=== PATIENT | female | born 1995 | race Caucasian/White ===

== ENCOUNTER 2021-04-04 07:25 | Inpatient (IN) | payer OTHER ==
[2021-04-04] MEDS ORDERED: BUTORPHANOL TARTRATE 1 MG/ML VIAL IVPB PRN ×2 (08:07)
[2021-04-04] MEDS ORDERED: PROMETHAZINE HCL 25 MG/1 ML VIAL IVPB ONE (08:07)
[2021-04-04 08:40] VITALS: BMI 33.3
[2021-04-04] MEDS: ELECTROLYTE-148 SOLN 1,000 ML IV SCH (09:15)
[2021-04-04] MEDS ORDERED: DINOPROSTONE 10 MG VAGINAL SUPPOSITORY VG ONE (09:45)
[2021-04-04 09:55] LABS: BASO % 0.4 % (0-2.0); EOS % 0.9 % (0-4.5); HEMATOCRIT 32.9 % (32.4-45.2); HEMOGLOBIN 11.4 GM/dL (10.7-15.3); LYMPH % 25.7 % (8-40); MCH 29.8 pg (25.7-33.7); MCHC 34.6 g/dl (32.0-36.0); MEAN CELL VOLUME 86.1 fl (80-96); MEAN PLT VOLUME 9.3 fl (7.5-11.1); MONO % 5.3 % (3.8-10.2); NEUT % 67.7 % (42.8-82.8); PLATELET COUNT 176 10^3/uL (134-434); RBC 3.83 M/mm3 (3.60-5.2); RDW 13.9 % (11.6-15.6); WHITE BLOOD COUNT 6.3 K/mm3 (4.0-10.0)
[2021-04-04 10:01] LABS: INR 0.83 (0.83-1.09); PROTHROMBIN TIME (PATIENT) 10.2 SEC (9.7-13.0)
[2021-04-04 10:04] LABS: ACTIVATED PTT 24.7 SECONDS (25.2-36.5)
[2021-04-04 10:17] LABS: CALCIUM 8.8 mg/dL (8.5-10.1)
[2021-04-04 10:18] LABS: BLOOD UREA NITROGEN 9.6 mg/dL (7-18)
[2021-04-04 10:21] LABS: CREATININE 0.5 mg/dL (0.55-1.3)
[2021-04-04] MEDS ORDERED: FENTANYL/BUPIVACAINE/NS/PF - PCEA - 50 ML DISP.SYRIN EP ONE (10:41)
[2021-04-04] MEDS ORDERED: BUPIVACAINE HCL/PF 0.25% (2.5MG/ML) 10 ML VIAL ONE ×2 (10:45→10:46)
[2021-04-04] MEDS: FENTANYL/BUPIVACAINE/NS/PF - PCEA - 50 ML DISP.SYRIN EP SCH (11:05)
[2021-04-04] MEDS ORDERED: NALOXONE HCL 0.4 MG/ML VIAL IVPUSH PRN (11:10)
[2021-04-04] MEDS ORDERED: LIDOCAINE HCL 1% PRESERVATIVE FREE - 30ML VIAL ONE (12:55)
[2021-04-04] MEDS ORDERED: OXYTOCIN 20 UNITS in 0.9% NS 20 UNIT/1,000 ML INFUS.BAG IV ONE ×2 (12:56→14:53)
[2021-04-04] MEDS: OXYTOCIN 20 UNITS in 0.9% NS 20 UNIT/1,000 ML INFUS.BAG IV SCH (13:15)
[2021-04-04] MEDS ORDERED: METHYLERGONOVINE MALEATE 0.2 MG/1 ML AMP IM PRN (13:17)
[2021-04-04] MEDS ORDERED: BISACODYL 10 MG SUPP.RECT PR PRN (13:17)
[2021-04-04] MEDS ORDERED: WITCH HAZEL 50% (TUCKS) 40 PAD/JAR PAD TP PRN (13:17)
[2021-04-04] MEDS ORDERED: ACETAMINOPHEN 325 MG TABLET (FP) PO PRN (13:17)
[2021-04-04] MEDS ORDERED: BENZOCAINE 28 GM HEMORRHOIDAL OINTMENT RC PRN (13:17)
[2021-04-04] MEDS ORDERED: BENZOCAINE 20% 57 GM BOTTLE TP PRN (13:17)
[2021-04-04] MEDS ORDERED: PCA PUMP NR ONE (13:32)
[2021-04-04 13:48] LABS: CORD BASE EXCESS -3.2 mmol/L (0-2); CORD HCO3 21.4 mmHg (20-29); CORD PCO2 37.4 mmHg (30-78); CORD pH 7.376 (7.14-7.44)
[2021-04-04 13:51] LABS: CORD BASE EXCESS -4.9 mmol/L (0-2); CORD HCO3 19.4 mmHg (20-29); CORD PCO2 34.2 mmHg (30-78); CORD pH 7.372 (7.14-7.44)
[2021-04-04 13:58] LABS: HIV INTERPRETATION NEGATIVE (NEGATIVE)
[2021-04-04] MEDS: IBUPROFEN 600 MG TABLET (FP) PO PRN (15:49)
[2021-04-05 09:00] LABS: BASO % 0.3 % (0-2.0); EOS % 0.8 % (0-4.5); HEMATOCRIT 30.2 % (32.4-45.2); HEMOGLOBIN 10.4 GM/dL (10.7-15.3); LYMPH % 29.5 % (8-40); MCHC 34.5 g/dl (32.0-36.0); MEAN CELL VOLUME 86.8 fl (80-96); MONO % 4.7 % (3.8-10.2); NEUT % 64.7 % (42.8-82.8); PLATELET COUNT 145 10^3/uL (134-434); RBC 3.47 M/mm3 (3.60-5.2); RDW 13.9 % (11.6-15.6)
[2021-04-05] MEDS: IBUPROFEN 600 MG TABLET (FP) PO PRN ×2 (13:40→18:14)
[2021-04-05] MEDS: OXYTOCIN 20 UNITS in 0.9% NS 20 UNIT/1,000 ML INFUS.BAG IV SCH (19:29)
[2021-04-05] MEDS: ELECTROLYTE-148 SOLN 1,000 ML IV SCH (19:29)
[2021-04-05] MEDS: FENTANYL/BUPIVACAINE/NS/PF - PCEA - 50 ML DISP.SYRIN EP SCH (19:29)
[2021-04-06 10:15] VITALS: BP 121/77; PULSE 79; TEMP 98.3
== END 2021-04-06 12:05 | disposition home or self-care (01) | DRG 560 ==
LOC: JLDR 07:25 → J3W 15:10
PROVIDERS: ADMIT Obstetrics & Gynecology; ATTEND Obstetrics & Gynecology
PROC: 0HQ9XZZ Repair Perineum Skin, External Approach (ICD-10-PCS; principal; 2021-04-04)
PROC: 10E0XZZ Delivery of Products of Conception, External Approach (ICD-10-PCS; 2021-04-04)
DX: O13.4 Gestational [pregnancy-induced] hypertension without significant proteinuria, complicating childbirth (principal); O70.0 First degree perineal laceration during delivery; Z3A.39 39 weeks gestation of pregnancy; Z37.0 Single live birth
CPT/HCPCS: 36415; 36600; 59409; 80048; 82803; 85025; 85461; 85610; 85730; 86780; 86850; 86870; 86900; 86901; 86902; 86999; 87389